=== PATIENT | female | born 1980 | race Caucasian/White ===

== ENCOUNTER 2018-06-04 10:08 | Emergency (ER) | payer SELFPAY ==
--- NOTE | 2018-06-04 10:41 | EDM.PDOC ---
ED HPI GENERAL MEDICAL PROBLEM - General Chief Complaint: Gastrointestinal Problem Stated Complaint: COUGH AND DIARRHEA Time Seen by Provider: 06/04/18 10:32 Source of Information: Reports: Patient History Limitations: Reports: No Limitations - History of Present Illness INITIAL COMMENTS - FREE TEXT/NARRATIVE: 37-year-old female presented to the ED with a productive cough for the better part of 3 weeks. She states she's been around influenza A in at least 3 different patients. She does remember having a high fever or headache or body aches with the cough started. She continues to have a productive cough. She is not asthmatic. Second problem is quite significant diarrhea for the last 3 days. She states she's going every half hour to 45 minutes 30 large quantity of yellow stool. No blood noted. Associated intermittent abdominal cramps prior to the bowel movement. She is up twice during the night with a bowel movement. She' s really watching her diet. She has a history of irritable bowel syndrome. She isn't really been around any reptiles recently but did have a chamelion 2 months ago that . She's feeling lightheaded and quite dizzy and weak today. Is and had much to eat the last 3 days because it seems to go right through within 10 minutes. Occasional nausea and vomiting the first day. She denies being on any antibiotics in the last 6 weeks Onset: Sudden Onset Date: 06/01/18 Duration: Day(s):, Constant, Other (Nausea and vomiting is better but still having significant loose stools.) Location: Reports: Chest (Cough for the better part of 3 weeks.), Abdomen Quality: Reports: Ache, Other (Tenormin sharp stabbing crampy abdominal pain) Severity: Moderate (Ache upper mid chest from coughing so much) Improves with: Reports: None ( pain is currently 5 out of 10) Worsens with: Reports: Other (Top is worsened by movement lying down and exposure to cool air. Diarrhea is made worse by eating.) Context: Reports: Sick Contact (Has been in contact with 3 other patients that have been influenza A positive.). Denies: Activity, Exercise, Lifting, Trauma Associated Symptoms: Reports: Cough, cough w sputum, Loss of Appetite, Malaise, Nausea/Vomiting (With initial onset of diarrhea the first day), Weakness, Other (Especially today it headed and dizzy). Denies: Confusion, Chest Pain, Diaphoresis, Fever/Chills, Headaches, Rash, Seizure, Shortness of Breath, Syncope Treatments FLAG SIGNALMAN: Reports: Other (see below) (None.) - Related Data Allergies Allergy/AdvReac Type Severity Reaction Status Date / Time No Known Allergies Allergy Verified 06/04/18 10:23 Home Meds: Home Meds Dicyclomine [Bentyl] 20 mg PO Q6H PRN #8 tablet 06/04/18 [Rx] Doxycycline [Vibramycin] 100 mg PO BID #20 cap 06/04/18 [Rx] Hydrocodone/Chlorphen P-Stirex [Tussionex Pennkinetic Susp] 5 ml PO BEDTIME PRN #50 ml 06/04/18 [Rx] Past Medical History - Past Surgical History Female Surgical History: Reports: Tubal Ligation (Laparoscopic-assisted tubal ligation) Social & Family History - Tobacco Use Smoking Status *Q: Current Every Day Smoker Years of Tobacco use: 25 Packs/Tins Daily: 0.5 Used Tobacco, but Quit: No - Caffeine Use Caffeine Use: Reports: Tea - Recreational Drug Use Recreational Drug Use: No - Living Situation & Occupation Living situation: Reports: Single Occupation: Employed ED ROS GENERAL - Review of Systems Review Of Systems: See Below Constitutional: Reports: Chills, Malaise, Weakness, Fatigue, Night Sweats, Decreased Appetite, Weight Loss. Denies: Fever HEENT: Reports: No Symptoms Respiratory: Reports: Cough, Sputum, Other. Denies: Wheezing, Pleuritic Chest Pain Cardiovascular: Reports: Chest Pain, Lightheadedness. Denies: Blood Pressure Problem, Claudication (From coughing so much.), Dyspnea on Exertion, Edema ( Especially today), Orthopnea, Palpitations Endocrine: Reports: Fatigue GI/Abdominal: Reports: Abdominal Pain (Him intermittent abdominal cramping pain just before diarrhea stool.), Diarrhea (Diarrhea stool yellow fairly large volume every 45 minutes or so), Decreased Appetite, Nausea (Nausea and vomiting the first day of illness 3 days ago mild nausea since.). Denies: Vomiting : Reports: No Symptoms Musculoskeletal: Reports: Other (He tripped and injured her right great toe 3 days ago and has persistent pain at the MTP joint.) Skin: Reports: No Symptoms Neurological: Reports: Dizziness Psychiatric: Reports: No Symptoms (Dizziness and lightheaded especially today. Could go to work today because of illness) Hematologic/Lymphatic: Reports: No Symptoms Immunologic: Reports: No Symptoms ED EXAM, GI/ABD - Physical Exam Exam: See Below Exam Limited By: No Limitations General Appearance: Alert, WD/WN, No Apparent Distress, Other (Vital signs are stable with temperature 36.7 pulse of 91 in sinus.) Eyes: Bilateral: Normal Appearance (No scleral icterus) Throat/Mouth: Normal Inspection, Normal Lips, Normal Oropharynx, Other Head: Atraumatic, Normocephalic Neck: Normal Inspection, Supple, Non-Tender, Full Range of Motion. No: Lymphadenopathy (L), Lymphadenopathy (R) Respiratory/Chest: No Respiratory Distress, Lungs Clear, Normal Breath Sounds, No Accessory Muscle Use Cardiovascular: Normal Peripheral Pulses, Regular Rate, Rhythm, No Edema, No Murmur, No Rub GI/Abdominal Exam: Soft, No Abnormal Bruit, No Mass, Tender, Abnormal Bowel Sounds (Bowel sounds are mildly hyperactive in all 4 quadrants). No: Guarding ( There is slight tenderness left lower quadrant and suprapubic abdomen), Rigid, Rebound Back Exam: Normal Inspection, Full Range of Motion. No: CVA Tenderness (L), CVA Tenderness (R) Extremities: Normal Inspection, No Pedal Edema, Other (There is ecchymoses at the base of the nail as well. Small subungual hematoma. Alignment is normal) Neurological: Alert, Oriented, CN II-XII Intact, Normal Cognition Psychiatric: Normal Affect, Normal Mood Skin Exam: Warm, Dry, Intact, Normal Color, No Rash Course - Vital Signs Last Recorded V/S: Last Vital Signs Temp 36.7 C 06/04/18 10:19 Pulse 91 06/04/18 10:19 Resp 18 06/04/18 10:19 BP 124/90 06/04/18 10:19 Pulse Ox 99 06/04/18 10:19 - Orders/Labs/Meds Orders: Active Orders 24 hr Category Date Time Status CULTURE STOOL + SHIGATOX [RM] Stat Lab 06/04/18 12:11 Received Dextrose 5%-Lactated Ringers 1,000 ml Med 06/04/18 10:45 Active IV ASDIRECTED Medication Orders Dextrose/Lactated Ringer's (Dextrose 5%-Lactated Ringers) 1,000 mls @ 999 mls/ hr IV ASDIRECTED JESSICA Last Admin: 06/04/18 10:58 Dose: 999 mls/hr Labs: Laboratory Tests 06/04/18 06/04/18 Range/Units 10:55 10:55 WBC 12.29 H (3.98-10.04) K/mm3 RBC 4.80 (3.98-5.22) M/mm3 Hgb 13.8 (11.2-15.7) gm/L Hct 41.7 (34.1-44.9) % MCV 86.9 (79.4-94.8) fl MCH 28.8 (25.6-32.2) pg MCHC 33.1 (32.2-35.5) g/dl RDW Std Deviation 39.7 (36.4-46.3) fL Plt Count 303 (182-369) K/mm3 MPV 11.1 (9.4-12.3) fl Neutrophils % (Manual) 58 (40-60) % Band Neutrophils % 0 (0-10) % Lymphocytes % (Manual) 30 (20-40) % Atypical Lymphs % 1 % Monocytes % (Manual) 4 (2-10) % Eosinophils % (Manual) 8 H (0.7-5.8) % Basophils % (Manual) 0 L (0.1-1.2) Platelet Estimate Adequate RBC Morph Comment Normal Sodium 142 (136-145) mEq/L Potassium 3.8 (3.5-5.1) mEq/L Chloride 107 (98-107) mEq/L Carbon Dioxide 24 (21-32) mEq/L Anion Gap 14.8 (5-15) BUN 15 (7-18) mg/dL Creatinine 1.2 H (0.55-1.02) mg/dL Est Cr Clr Drug Dosing 60.09 mL/min Estimated GFR (MDRD) 51 (>60) mL/min BUN/Creatinine Ratio 12.5 L (14-18) Glucose 104 (74-106) mg/dL Calcium 9.4 (8.5-10.1) mg/dL Magnesium 1.7 L (1.8-2.4) mg/dl Total Bilirubin 0.7 (0.2-1.0) mg/dL AST 17 (15-37) U/L ALT 18 (14-59) U/L Alkaline Phosphatase 69 (46-116) U/L C-Reactive Protein 0.8 (<1.0) mg/dL Total Protein 8.2 (6.4-8.2) g/dl Albumin 3.9 (3.4-5.0) g/dl Globulin 4.3 gm/dL Albumin/Globulin Ratio 0.9 L (1-2) Lipase 270 (73-393) U/L Meds: Medications Generic Name Dose Route Start Last Admin Trade Name Freq PRN Reason Stop Dose Admin Dextrose/Lactated Ringer's 1,000 mls @ 999 mls/hr 06/04/18 10:45 06/04/18 10: 58 Dextrose 5%-Lactated Ringers IV 999 mls/hr ASDIRECTED JESSICA Administration - Radiology Interpretation Free Text/Narrative:: 37-year-old female presents to the ED with 2 problems. One is that she has had a productive cough for the better part of 3 weeks. Still bringing up some phlegm. Cough is worse when she tries to lay down to sleep at night. Not asthmatic has been exposed to at least 3 patients with influenza A. Second problem is the development of diarrhea with the initial nausea and vomiting 3 days ago. She continues to have diarrhea stool about every 45 minutes. Stool or yellow and fairly high-volume water loss. Noted. Associated intermittent lower abdominal cramping pain. No recent antibiotic usage. Small possibility of foodborne illness. Third problem was recent injury to her right great toe when she tripped and jammed up the joint. Exam reveals swelling over the first MTP joint. X-ray of the toe will be obtained to view chest x-ray to be obtained IV will be D5 Ringer's lactate at open. Routine labs to be obtained. Stools will be checked for white cells and a culture if one is reducible in the ED. - Re-Assessments/Exams Free Text/Narrative Re-Assessment/Exam: 06/04/18 11:40 White count is mildly elevated at 12.29. Differential pending hemoglobin is 13.8 with hematocrit of 41.7. Platelet count is 303,000. Sodium 142 with a potassium of 3.8 chloride 17 with a bicarbonate of 24. And a gap is 14.8 BUN is 15 with a running of 1.2. Estimated GFR is 51 glucose is 104. BUN/ creatinine ratio is 12.5. Calcium is 9.4 magnesium slightly low at 1.7. Liver function is normal. C-reactive protein 0.8. Total protein 8.2 with an albumin fraction of 3.9. Lipase 270. Two-view chest x-ray is completely clear with no sign of pneumonia. X-ray of the right great toe does reveal a corner fracture of the medial aspect of the distal phalanx. Position and alignment are good. Influenza screen is negative. 06/04/18 12:30 differential on the white count was 58% neutrophils no bands cells reported. Still has been present presented to the lab and I'm awaiting confirmation of whether or not there WBCs present. 06/04/18 12:47 stool is revealed no white cells present. Therefore it is of viral etiology Departure - Departure Time of Disposition: 12:53 Disposition: Home, Self-Care 01 Condition: Fair Clinical Impression: Bronchitis, Viral gastroenteritis Fracture of toe of right foot Qualifiers: Encounter type: initial encounter Toe: great toe Fracture type: closed Phalanx : distal Fracture alignment: nondisplaced Qualified Code(s): S92.424A - Nondisplaced fracture of distal phalanx of right great toe, initial encounter for closed fracture - Discharge Information *PRESCRIPTION DRUG MONITORING PROGRAM REVIEWED*: Not Applicable *COPY OF PRESCRIPTION DRUG MONITORING REPORT IN PATIENT TAYLOR: Not Applicable Prescriptions: Dicyclomine [Bentyl] 20 mg PO Q6H PRN #8 tablet PRN Reason: Abdominal cramps/diarrhea Doxycycline [Vibramycin] 100 mg PO BID #20 cap Hydrocodone/Chlorphen P-Stirex [Tussionex Pennkinetic Susp] 5 ml PO BEDTIME PRN #50 ml PRN Reason: Cough relief Instructions: Toe Fracture, Viral Gastroenteritis, Adult Referrals: PCP,None [Primary Care Provider] - Forms: ED Department Discharge, ED Return to Work/School Form Additional Instructions: Evaluation the emergency room today in regards to 3 problems. One is persistent productive cough for over 3 weeks. Influenza screen was negative. Two-view chest x-ray does not show any evidence of pneumonia. Clinically you have bronchitis. Suggest treatment with doxycycline 100 mg twice daily for the next 10 days to clear up infection. Cough syrup Tussionex 5 mils ideally about an hour before bedtime so that you can sleep without coughing. Also help slow down bowel function. Second problem is viral gastroenteritis with persistent diarrhea. Lab work did not show any major electrolyte imbalances at this time. We'll did not show any white blood cells which would suggest a bacterial source. Therefore it appears that this is a viral gastroenteritis He remained fairly well hydrated. Given a liter of IV D5 Ringer's lactate while in the ED to repeat provide rehydration. Suggest treatment to be clear fluids primarily Gatorade/Powerade 5-6 ounces per hour to maintain hydration. When hungry try soda crackers and then advance to jam on toast/bread. Located any time. Then advance to soup such as soup or chicken rice/turkey noodle. Stay away from fatty greasy foods. No dairy products or apple juice or grape juice until stools are formed backup. Third problem was fracture of the distal phalanx of your right great toe from being jammed up a few days ago. The there is no displacement of the fracture and they will heal satisfactorily over the next 5- 6 weeks. Treatment is upper fitting shoewear to prevent further injury. You could honorio tape it to the second toe to maintain position if he felt this was more comfortable however at this time I suspect it would cause more discomfort. Motrin 600 mg every 6 hours needed for pain. Suggest off work today and tomorrow due to current illness. Suggest follow-up if you continue to have diarrhea stools greater than 72 hours. - My Orders Last 24 Hours: My Active Orders 06/04/18 10:45 Dextrose 5%-Lactated Ringers 1,000 ml IV ASDIRECTED 06/04/18 12:11 CULTURE STOOL + SHIGATOX [RM] Stat - Assessment/Plan Last 24 Hours: My Active Orders 06/04/18 10:45 Dextrose 5%-Lactated Ringers 1,000 ml IV ASDIRECTED 06/04/18 12:11 CULTURE STOOL + SHIGATOX [RM] Stat
[2018-06-04] MEDS ORDERED: Dextrose 5%-Lactated Ringers 1,000 ML IV SCH (10:45)
--- NOTE | 2018-06-04 12:03 | CR ---
Chest: Two views of the chest were obtained. Comparison: No prior chest x-ray. Heart size and mediastinum are normal. Lungs are clear. Bony structures are unremarkable. Impression: 1. Nothing acute is seen on two-view chest x-ray. Diagnostic code #1
--- NOTE | 2018-06-04 12:15 | CR ---
Right first toe: Four views of the right first toe were obtained. Comparison: No prior foot or toe exam. Findings: Nondisplaced corner fracture is seen within the base of the distal phalanx. Intra-articular extension is seen into the IP joint. No additional fracture or other bony abnormality is seen. Soft tissue swelling is noted. Impression: 1. Fracture as noted above. Soft tissue swelling. Diagnostic code #3
== END 2018-06-04 13:20 | disposition home or self-care (01) ==
LOC: JD.ED 10:08
DX: J40 Bronchitis, not specified as acute or chronic (principal); A08.4 Viral intestinal infection, unspecified; S92.424A Nondisplaced fracture of distal phalanx of right great toe, initial encounter for closed fracture; W18.40XA Slipping, tripping and stumbling without falling, unspecified, initial encounter; F17.210 Nicotine dependence, cigarettes, uncomplicated
CPT/HCPCS: 36415; 71046; 73660; 80053; 83690; 83735; 85007; 85027; 86140; 87046; 87804; 89055; 96360; 99284; J7042